=== PATIENT | female | born 1985 | race Caucasian/White ===

== ENCOUNTER 2019-12-15 03:25 | Inpatient (IN) | payer OTHER, SELFPAY ==
[2015-10-10 22:39] VITALS: BMI 25.9
[2019-12-15] MEDS: Lactated Ringers 1,000 ML 50 ML IV (03:35)
[2019-12-15 03:47] VITALS: BMI 25.9
[2019-12-15 03:57] LABS: Absolute Lymphocyte Count 2.43 X10^3/uL (0.83-4.51); Absolute Neutrophil Count 7.5 X10^3/uL (2.0-7.7); Basophil# 0.03 X10^3/uL; Basophil% 0.3 % (0-1); Eosinophil# 0.09 X10^3/uL; Eosinophils% 0.8 % (0-5); Hematocrit 36.5 % (37-47); Hemoglobin 12.1 g/dL (12.0-15.0); Lymphocyte # 2.43 X10^3/ul (4.0); Lymphocyte % 22.3 % (19-41); Mean Corp Hgb Conc 33.2 g/dL (32-36); Mean Corpuscular Hgb 30.2 pg (27.0-32.0); Mean Platelet Vol. 11.9 fl (6.2-12.0); Monocyte# 0.74 X10^3/uL; Monocyte% 6.8 % (0-10); NRBC Flagged by Analyzer 0 % (0-5); Neutrophil # 7.48 X10^3/uL (2.7-7.7); Neutrophil % 68.8 % (47-70); Platelet Count 154 K/mm3 (150-450); RBC Distribution Width CV 13.5 % (11.6-14.6); RBC Distribution Width SD 44.7 fl (35.1-43.9); Red Blood Count 4.01 M/mm3 (4.2-5.4); White Blood Count 10.9 K/mm3 (4.4-11.0)
[2019-12-15 04:11] LABS: Prothrombin Time (Protime)PT. 12.1 SECONDS (11.7-14.9)
[2019-12-15 04:12] LABS: Partial Thromboplast Time 26.9 Seconds (24.1-36.2)
[2019-12-15 04:29] LABS: AST(SGOT) 15 U/L (15-37); Alanine Aminotransfer ALT/SGPT 16 U/L (13-56); EST Glomerular Filtration Rate 88 mL/min (>60); Est Glom Filt Rate - Afr Amer 106 mL/min (>60); Estimated Creatinine Clearance 110.75 ml/min; Uric Acid 4.9 mg/dL (2.6-6.0)
--- NOTE | 2019-12-15 04:41 | PCM.HP.OB ---
History Date of Admission: 12/15/19 Final JUVENAL: 12/14/19 Gestational age: 40 Weeks and 1 Days History of this : This is a 34 year-old, G [], P [], at 40 weeks gestational age. Medical History: Medical History (Last Updated 12/15/19 @ 04:[address] Layne Schwarz MD) Anxiety F41.9 Migraine G43.909 Allergies No Known Allergies Allergy (Verified 12/15/19 03:48) Home Medications: Home Medications Vits [Prenatabs FA ] 1 tablet PO DAILY 09/23/15 Smoking Status: Former smoker Alcohol: None Number of Fetus(es): 1 NST - FHR Rate Baby A Baseline: 115 Variability:: Moderate Accelerations:: 15 x 15 Decelerations:: None NST Reactive:: Yes Uterine Activity:: Irregular History Past Pregnancies: Past Pregnancies Delivery Date Name GA/ Weeks Outcome Route Wt Sex Labor Length Anesthesia Delivery Location Provider FOB Labs: See [facility] H&P Physical Exam General: Alert, Oriented x3 Abdomen: Soft, Non Tender, Non-Distended, Gravid Neurological: Cranial nerves II-XII grossly intact [employer] REP: Normal external genitalia Estimated gestational size: Appropriate for gestational size Presentation: Cephalic Cervix Dilation (cm): 2 - AROM clear fluid Station: -2 Effacement (%): 75 Assessment/Plan This is a 34 year-old, , at 40&1 weeks gestational age. Admit to L&D GBS negative Pain - epidural as desired Elevated BP- check preE labs EFW - less than 4500g, patient with adequate pelvis
[2019-12-15 05:14] LABS: Protein, Urine (Random) 42.3 mg/dL (<11.9); Protein:Creat Ratio 328 mg/g CRE (0-200)
[2019-12-15] MEDS: Ondansetron 4 MG/2 ML Vial IV (07:28)
[2019-12-15] MEDS: fentaNYL 100 MCG/2 ML Ampul IV (07:38)
[2019-12-15] MEDS: Oxytocin 30 units/NS 500 ml 30 UNITS/500 ML IV.SOLN 334 UNITS IV (09:24)
--- NOTE | 2019-12-15 09:47 | PCM.OPRPT ---
Vaginal Delivery Maternal Presentation: Active Labor Amniotic Membrane Rupture Type: Artificial Amniotic Fluid Description: Clear Final JUVENAL: 12/14/19 Gestational age: 40 Weeks and 1 Days Date of Procedure: 12/15/19 Pre-Operative Diagnosis: Labior Post-Operative Diagnosis: Labor Surgery/ Procedure Performed: Spontaneous Vaginal Delivery Type of Anesthesia: Local with 1% lidocaine Description of Procedure: Patient prepped & draped in stirrups when ant lip/C/+1. Patient pushed with next ctx & was C/C/+1. She pushed to deliver the head. head gently guided to allow delivery of anterior and posterior shoulders. No excess traction placed on the head. Body delivered and infant placed on maternal abdomen. 3VC clamped & cut in delayed fashion. Placenta delivered with gentle traction and good uterine tone obtained. Presentation: FRANCIS Placental Delivery Description: Expressed Placenta Disposition: [facility] Cord Vessel Description: 3 Vessels Cord Entanglement: None Estimated Blood Loss: 250ml Infant A gender: Male - Jermaine (1 minute): 8 (5 minute): 9 Episiotomy Description: None Laceration: 1st degree - vaginal - repaired with 3-0 vicryl Medications given after delivery: IV Pitocin Complications: None
[2019-12-15] MEDS: Ketorolac 30 MG/ML Syringe IV (10:42)
[2019-12-15] MEDS: 0.9% Saline Lock 10 ML Syringe IV (11:54)
[2019-12-15] MEDS: Acetaminophen 500 MG Tablet 1000 MG PO (12:27)
[2019-12-15 15:40] VITALS: BP 142/92; PULSE 74; RESP 16; TEMP 37.2; O2SAT 98
[2019-12-15] MEDS: Ibuprofen 600 MG Tablet PO (21:52)
[2019-12-15 22:05] VITALS: BP 142/81; PULSE 76; RESP 16; TEMP 37
[2019-12-15 23:25] VITALS: BP 134/69; PULSE 88; RESP 14; TEMP 36.9
[2019-12-16] VITALS (14 sets, daily range): BP systolic 120–186; BP diastolic 56–104; PULSE 64–84; RESP 16–18; TEMP 36.8–37.4; O2SAT 98
[2019-12-16] MEDS: Acetaminophen 500 MG Tablet 1000 MG PO (03:37)
[2019-12-16] MEDS: Labetalol 100 MG Tablet PO ×2 (06:32→21:42)
--- NOTE | 2019-12-16 08:17 | PCM.PN.OB ---
Subjective: pt seen at bedside, doing well. pt reports good pain control. lochia mild. Denies GAN or visual changes. breast feeding well. - Physical Exam Vitals/I&O's: Vital Signs Temp Pulse Resp BP Pulse Ox 98.3 F 80 16 158/96 H 98 12/16/19 03:38 12/16/19 06:04 12/16/19 06:04 12/16/19 06:04 12/15/19 15:40 Oxygen Delivery Method Room Air Weight: 84.368 kg Body Mass Index (BMI) 25.9 Intake and Output for Last 24 Hours 12/14/19 12/15/19 12/16/19 23:59 23:59 23:59 Intake Total 933.33 / 933.33 Output Total 375 / 375 Balance 558.33 / 558.33 General: Alert, Oriented x3 Microbiology Past 72 Hours 12/15/19 04:15 Mucosa - Nasopharyngeal Coronavirus COVID-19 PCR - Final Current Medications Acetaminophen (Tylenol) 1,000 mg PO Q8H PRN PRN PRN Reason: Pain Score 1-3/10 Last Admin: 12/16/19 03:37 Dose: 1,000 mg Documented by: Bisacodyl (Dulcolax) 10 mg RECTAL UD PRN PRN Reason: If no BM Dibucaine (Dibucaine) 1 applic TOPICAL TID PRN PRN; Protocol PRN Reason: Discomfort Hydrocortisone (Hytone) 1 applic TOPICAL TID PRN PRN; Protocol PRN Reason: Discomfort Ibuprofen (Motrin) 600 mg PO Q6H PRN PRN PRN Reason: Pain Score 1-3/10 Last Admin: 12/15/19 21:52 Dose: 600 mg Documented by: Methylergonovine Maleate (Methergine) 0.2 mg IM X1 PRN PRN Reason: Excess bleeding/uterine atony Ondansetron HCl (Zofran) 4 mg IV Q4H PRN PRN PRN Reason: Nausea Oxycodone HCl (Oxyir) 5 - 10 mg PO Q4H PRN PRN PRN Reason: Pain Score 4-10/10 Senna/Docusate Sodium (Senokot-S, Rose Marie-Colace) 1 - 2 tablet PO DAILY PRN PRN PRN Reason: Constipation Simethicone (Mylicon) 80 mg PO PCHS PRN PRN Reason: Indigestion/Stomach pain Sodium Chloride () 5 - 15 ml IV UD PRN PRN Reason: SALINE FLUSH Last Admin: 12/15/19 11:54 Dose: 10 ml Documented by: Medical Necessity - Tobacco Use Smoking Status: Former smoker Assessment/Plan PPD#1, PRE E without severe features 1) responded well to Labetalol 100mg PO- will start her on 100mg BID 2) Routine Care 3) pain mgmt 4) consider dc home tomorrow if BPs are stable.
[2019-12-17 01:43] VITALS: BP 132/75; BP 140/76; PULSE 67; PULSE 71
[2019-12-17 01:45] VITALS: BP 132/75; BP 140/76; PULSE 67; RESP 18; TEMP 37.2
--- NOTE | 2019-12-17 08:06 | PCM.PN.OB ---
Subjective: pt seen at bedside, doing well. Patient denies any headaches, blurry vision. Breast-feeding going well. Lochia mild. Voiding without difficulty. - Physical Exam Vitals/I&O's: Vital Signs Temp Pulse Resp BP Pulse Ox 99.0 F 67 18 140/76 H 98 12/17/19 01:45 12/17/19 01:45 12/17/19 01:45 12/17/19 01:45 12/16/19 08:00 Oxygen Delivery Method Room Air Weight: 84.368 kg Body Mass Index (BMI) 25.9 Intake and Output for Last 24 Hours 12/15/19 12/16/19 12/17/19 23:59 23:59 23:59 Intake Total 933.33 / 933.33 Output Total 375 / 375 Balance 558.33 / 558.33 General: Alert, Oriented x3 Microbiology Past 72 Hours 12/15/19 04:15 Mucosa - Nasopharyngeal Coronavirus COVID-19 PCR - Final Current Medications Acetaminophen (Tylenol) 1,000 mg PO Q8H PRN PRN PRN Reason: Pain Score 1-310 Last Admin: 12/16/19 03:37 Dose: 1,000 mg Documented by: Bisacodyl (Dulcolax) 10 mg RECTAL UD PRN PRN Reason: If no BM Dibucaine (Dibucaine) 1 applic TOPICAL TID PRN PRN; Protocol PRN Reason: Discomfort Hydrocortisone (Hytone) 1 applic TOPICAL TID PRN PRN; Protocol PRN Reason: Discomfort Ibuprofen (Motrin) 600 mg PO Q6H PRN PRN PRN Reason: Pain Score 1-310 Last Admin: 12/15/19 21:52 Dose: 600 mg Documented by: Labetalol HCl (Trandate) 100 mg PO BID MARK Last Admin: 12/16/19 21:42 Dose: 100 mg Documented by: Methylergonovine Maleate (Methergine) 0.2 mg IM X1 PRN PRN Reason: Excess bleeding/uterine atony Ondansetron HCl (Zofran) 4 mg IV Q4H PRN PRN PRN Reason: Nausea Oxycodone HCl (Oxyir) 5 - 10 mg PO Q4H PRN PRN PRN Reason: Pain Score 4-10/10 Senna/Docusate Sodium (Senokot-S, Rose Marie-Colace) 1 - 2 tablet PO DAILY PRN PRN PRN Reason: Constipation Simethicone (Mylicon) 80 mg PO PCHS PRN PRN Reason: Indigestion/Stomach pain Sodium Chloride () 5 - 15 ml IV UD PRN PRN Reason: SALINE FLUSH Last Admin: 12/15/19 11:54 Dose: 10 ml Documented by: Medical Necessity - Tobacco Use Smoking Status: Former smoker Assessment/Plan PPD#2, PRE E without severe features 1) continue PO labetalol 2) follow up this week in office for BP check 3) discharge instructions reviewed
--- NOTE | 2019-12-17 08:09 | DCINST_ITS ---
Discharge Diet: No Restrictions Discharge Activity: Return to Normal Activity, May not drive while taking narcotic pain medications., May Shower May resume sexual activity in: 4-6 weeks Additional Activity Instructions:: Nothing in the vagina for 4-6 weeks. You may return to work/school in 6 weeks. Call your doctor if your incision/area has: Continuous Slow Oozing, Sudden Increased Bleeding, Increased Pain/ Swelling, Increased Redness, Foul Smelling Discharge Additional Instructions: If you experience any of the following, contact your healthcare provider. * Bleeding that soaks a pad every hour for 2 hours * Fever 100.4 or higher * Unrelieved incision or abdominal pain * Swelling, redness, discharge or bleeding from your incision or episiotomy site * Your incision begins to separate * Problems urinating (including inability to urinate or burning while urinating). * Visual changes * Severe headache * Flu-like symptoms * Pain or redness in one of both of your breasts * Pain, warmth, tenderness or swelling in your legs, especially the calf area * Frequent nausea and vomiting * Symptoms of depression or anxiety If you experience any of the following, call 911 or go to the nearest Emergency Room. * Chest pain * Problems breathing * Seizure activity * Partial or complete paralysis of a body part, slurred speech, weakness or drooping of the face, or a sudden inability to walk or hold your balance Allergies/Adverse Reactions: Allergies No Known Allergies Allergy (Verified 12/15/19 03:48) Medications to take at Discharge Vits [Prenatabs FA ] 1 tablet PO DAILY 09/23/15 Ibuprofen [Motrin] 600 mg PO Q6H PRN PRN #30 tab 12/17/19 Labetalol [Trandate (Beta Aminta)] 100 mg PO BID #60 tab 12/17/19 The following prescriptions were given: Ibuprofen [Motrin] 600 mg PO Q6H PRN PRN #30 tab PRN Reason: Pain Score 1-3/10 Transmission Status: Pending to [facility] [address] Labetalol [Trandate (Beta Aminta)] 100 mg PO BID #60 tab Transmission Status: Pending to [facility] [address] When: Call to make an appointment with your doctor in 6 weeks. you will need to be seen this week for BP check - monday12/20/19 at 9am Primary Care Physician: Care Physician,No Primary [Primary Care Provider] - Test Results: Test results from this visit will be discussed in further detail at your follow- up appointment, if applicable.
[2019-12-17 09:06] VITALS: BP 138/87; PULSE 69; RESP 16; TEMP 37.1
[2019-12-17] MEDS: Labetalol 100 MG Tablet PO (10:06)
== END 2019-12-17 10:50 | disposition home or self-care (01) | DRG 807 ==
LOC: WPOUT 03:30 → WP 03:30
PROVIDERS: Admitting Provider Advanced Practice Midwife; Visit Provider Advanced Practice Midwife
DX: O15.03 Eclampsia complicating pregnancy, third trimester (principal); Z37.0 Single live birth; O70.0 First degree perineal laceration during delivery; Z3A.40 40 weeks gestation of pregnancy; Z79.899 Other long term (current) drug therapy
CPT/HCPCS: 59050; 82565; 82570; 84156; 84450; 84460; 84550; 85025; 85610; 85730; 86850; 86900; 86901; 87635; 99218; J7120; A4216; G0378; J2405; U0004

== ENCOUNTER 2022-05-20 09:30 | Day surgery (SDC) | payer OTHER, SELFPAY ==
--- NOTE | 2022-05-17 08:23 | PCM.HP.BLA ---
History and Physical Date of Admission: 05/20/22 Pre-Op History and Physical ? HPI: The patient is a 36 year old female presenting for pre-operative visit. She is scheduled for laparoscopic bilateral salpingectomy, for desires sterilization on 05/20/22. Procedure discussed along with risks, benefits and complications. Other alternatives discussed for management. Consent form signed? Yes. ? ? PAST MEDICAL HISTORY PAST MEDICAL HISTORY Diagnosis Date ? anxiety ? ? Hx of anxiety disorder ? ? Migraine ? ? Resolved after first child ? Pseudoangiomatous stromal hyperplasia of breast ? ? Right ? 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 Septicemia (HCC) 2003 ? from UTI ? Vitamin D deficiency ? ? ? PAST SURGICAL HISTORY PAST SURGICAL HISTORY Procedure Laterality Date ? BX OF BREAST; INCISIONAL Right 2018 ? benign ? PAST SURGICAL HISTORY OF ? ? ? wisdom teeth ? ? ? CURRENT MEDICATIONS Current Outpatient Medications Medication Sig Dispense Refill ? Cholecalciferol, Vitamin D3, 25 mcg (1,000 unit) cap Take 2 capsules by mouth once daily. ? ? ? cyanocobalamin (VITAMIN B-12) 1,000 mcg tab Take 1 tablet by mouth once daily. ? ? ? No current facility-administered medications for this visit. ? ? ALLERGIES: Patient has no known allergies. ? PERSONAL HISTORY: SOCIAL HISTORY Social History ? Tobacco Use ? Smoking status: Former ? ? Packs/day: 0.25 ? ? Years: 8.00 ? ? Pack years: 2.00 ? ? Types: Cigarettes ? ? Quit date: 12/26/2013 ? ? Years since quittin.3 ? Smokeless tobacco: Never Vaping Use ? Vaping Use: Never used Substance Use Topics ? Alcohol use: Yes ? ? Comment: 1-2 per month ? Drug use: Never ? FAMILY HISTORY: FAMILY HISTORY FAMILY HISTORY Problem Relation Age of Onset ? No Known Problems Mother ? ? No Known Problems Father ? ? Allergies Sister ? ? No Known Problems Maternal Grandmother ? ? Cancer Maternal Grandfather ? ? lung ? Heart Son ? ? PVC ? No Known Problems Son ? ? ? REVIEW OF SYMPTOMS: negative except as noted above PHYSICAL EXAMINATION: ? VITALS: Blood pressure 110/60, weight 145 lb (65.8 kg), last menstrual period 05/03/2022. ? GENERAL: The patient is well nourished, well hydrated in no acute distress. , The patient is oriented to time, place, and person. Neck: full range of motion ? IMPRESSION: 36yo desires sterilization ? PLAN: Laparoscopic bilateral salpingectomy ? Pt has been counseled on risks/benefits and alternatives of surgery including but not limited to anesthesia, bleeding, infection, injury to pelvic structures including bowel, bladder, ureters and vessels. Pt wishes to proceed with surgery at this time. Pt declines reversible contraception - understands this is permanent ? Pre and post op instructions reviewed. ? ? I have reviewed and updated past medical and surgical history, medications and allergies Dyana Bedolla MD
[2022-05-20] VITALS (10 sets, daily range): BP systolic 129–167; BP diastolic 83–112; PULSE 59–103; RESP 16; TEMP 36.7–36.8; O2SAT 93–100; BMI 20.6
[2022-05-20] MEDS: Lactated Ringers 1,000 ML 15 ML IV ×2 (10:16→12:31)
[2022-05-20 10:20] LABS: Hematocrit 41.1 % (37-47); Hemoglobin 13.7 g/dL (12.0-15.0); Mean Corp Hgb Conc 33.3 g/dL (32-36); Mean Corpuscular Hgb 29.6 pg (27.0-32.0); Mean Corpuscular Volume 88.8 fL (81-99); Mean Platelet Vol. 10.7 fl (6.2-12.0); Platelet Count 204 K/mm3 (150-450); RBC Distribution Width SD 42.4 fl (35.1-43.9); Red Blood Count 4.63 M/mm3 (4.2-5.4); White Blood Count 7.5 K/mm3 (4.4-11.0)
[2022-05-20 10:21] LABS: Internal QC Validated? YES +Cl - CLEAR BKGD; Pregnancy, Urine Negative Negative
--- NOTE | 2022-05-20 10:21 | DCINST_ITS ---
Discharge Instructions Procedure Other Diet Discharge Diet: No restrictions Activity May resume sexual activity in: 2 weeks Lifting Restrictions: 20-25 lbs Dressing / Incision Call your doctor if your incision/area has: Continuous Slow Oozing, Sudden Increased Bleeding, Increased Pain/ Swelling, Increased Redness, Foul Smelling Discharge and Swelling at the incision site Call your doctor if you observe: Fever of 101 or Higher, Inability to urinate, Inability to have a bowel movement, Using more than 1 pad per hour and Uncontrolled pain Additional Dressing/Incision Instructions:: You have skin glue over your incision sites, do not pick off. You may shower and let the soap and water run over the incision sites and dab dry. Follow Up Care Please Follow Up With: Dyana Peng MD When: 1-2 weeks post OP if you need an appointment please call [phone] Test Results: Test results from this visit will be discussed in further detail at your follow- up appointment, if applicable. Discharge Plan Admission Attending Provider: Dyana Peng Primary Care Provider: Wilson Hankins Discharge Orders/Prescriptions Prescriptions: No Action NK Referrals / Follow Up: Wilson Hankins MD [Primary Care Provider] - Disposition Discharge Orders: Discharge Patient (Routine); Ordered 05/20/22 Ordered By: Dr. Dyana Peng
[2022-05-20] MEDS: Bupivacaine 0.25% 30 ML Vial (10:46)
--- NOTE | 2022-05-20 10:55 | FALS_PTH ---
PATIENT: HUY STANLEY LOC: [facility] U#:[id number] AGE/SX: 36/F ROOM: RE05/20/[address]: Dr. Dyana Peng, MDDOB: 1985 BED: DIS: 05/20/2022 SPEC #: [id number] RECD: 05/20/22 11:38 STATUS: COLE PATRICIA #: [id number] АНДРЕЙ: 05/20/22 10:[address]: Dyana Peng DEPT: SURGICAL PATHOLOGY RECD BY: Keysha Noland ENTERED: 05/20/22 12:47 SP TYPE: FALL TUBES OTHR DR: Dr. Wilson Hankins MD Tissues: Fallopian tube Procedures: Surgery Specimen Level II Surgery Specimen Level IV HEADER OPERATION: Laparoscopic salpingectomy PRE-OP DIAGNOSIS: Sterilization TISSUE SUBMITTED: Bilateral fallopian tubes MICROSCOPIC DIAGNOSIS Right and left fallopian tubes, bilateral salpingectomies: Complete cross-sections of fallopian tubes. Benign paratubal cyst. AM:lula 05/23/2022 MICROSCOPIC DESCRIPTION Slides are reviewed. GROSS DESCRIPTION Received in fixative is one container labeled with the patient's name and designated bilateral fallopian tubes. The specimen consists of two fallopian tubes with an average length of 5.5 cm and has an average diameter of 0.8 cm. Both fallopian tubes have normal fimbriated ends. One fimbrial end contains a smooth, glistening cyst measuring 0.7 cm and contains clear fluid. Steam Shovel Runner sections are submitted in two cassettes as follows: 1 - one fallopian tube, 2 - the other fallopian tube. / AM:lula 05/20/2022 TC:5 CPT: 59622 x2
--- NOTE | 2022-05-20 11:11 | PCM.OPRPT ---
Report of Operation Date of Procedure: 05/20/22 Pre-Operative Diagnosis: desires sterilization Post-Operative Diagnosis: same Surgery/Procedure Performed:: laparoscopic bilateral salpingectomy Description of Surgical Findings:: normal tubes and ovaries bilaterally. No pelvic adhesions. Surgeon: Dyana Peng low voltage electrician: None (MS3 kwaku encarnacion) Type of Anesthesia: General and Local Special Medications: 0.25% marcaine Specimen's removed: bilateral fallopian tubes Drains: none Estimated Blood Loss (mL): <5 Fluids Replaced: 700 Description of Procedure: After informed consent was obtained patient was taken to the operating room she was placed in supine position she was given anesthesia. She was then placed in the [facility] stirrups and she was prepped and draped in normal sterile fashion. Bladder was drained prior to the start of procedure. At this time attention was turned to the vaginal portion where weighted speculum placed at posterior fornix vagina single-tooth tenaculum was used to gently grasp the internal the cervix. uterus was gently sounded to approximately 7cm. Uterine manipulator was placed without difficulty. Legs then placed in parallel with the abdomen the tenaculum and the weighted speculum were removed. 2 towel clamps were placed at level of umbilicus. Marcaine was injected infraumbilical and a small incision was made. The 5 mm trocar was placed under direct visualization. CO2 gas was used to insufflate the intra-abdominal cavity. Upon inspection no gross abnormalities appreciated- the uterus tubes and ovaries appeared to be normal. At this time then the LLQ and RLQ ports were placed First Marcaine was injected and small incision was made a knife and the 5 mm trocars were placed. At this time then tubes were traced back to the fimbriated ends. Enseal was used to coagulate and ligate along mesosalpinx bilaterally until tubes removed completely. Good hemostasis was appreciated. At this time procedure was deemed complete successful. The gas was desufflated on from the intra-abdominal cavity. The trochars were removed. Skin was closed using 4-0 Monocryl in a subcutaneous fashion. Dermabond glue was placed. Instrument lap and needle counts were correct ?2. The uterine manipulator was removed. Vaginal sweep was performed it was negative. There were no complications anticipated normal postoperative course for this patient. Grafts/Implants Used: none Procedure Start Time: 10:44 Procedure Stop Time: 11:09 Complications none Admit VTE Documentation VTE Present on Admission: Yes VTE Mechan Device Prophylaxis: SCD's VTE Pharm Prophylaxis ordered?: No Reason prophylaxis not ordered:: Procedure Not Indicated
== END 2022-05-20 14:00 | disposition home or self-care (01) ==
LOC: SDC 09:33 → AC 09:34
PROVIDERS: PCP Family Medicine; Referring Provider Obstetrics & Gynecology; Visit Provider Obstetrics & Gynecology
PROC: (CPT 58661; principal; 2022-05-20 10:40)
DX: Z30.2 Encounter for sterilization (principal); N83.8 Other noninflammatory disorders of ovary, fallopian tube and broad ligament; F17.210 Nicotine dependence, cigarettes, uncomplicated
CPT/HCPCS: 58661; 00840; 81025; 85027; 88302; 88305; J7120; C1760; J2405

== ENCOUNTER 2024-10-30 16:50 | Emergency (ER) | payer OTHER, SELFPAY ==
[2024-10-30 16:52] VITALS: BP 182/120; PULSE 75; RESP 18; TEMP 36.4; O2SAT 99; BMI 23.4
--- NOTE | 2024-10-30 17:14 | EDS_ITS ---
HPI History of Present Illness Chief Complaint: Headache Informant: patient Onset/Context/Timing Onset: Days (5) Context: Gradual Timing: Continuous Quality -Headache: Positive for Sharp and Other (Stabbing) Location: Left frontal area Worsened by: Palpation Relieved by: Nothing Associated Symptoms/Injury Associated Symptoms: Positive for Fever (101); Negative for Nausea, Vomiting, Sore Throat, Sinus Pressure, Numbness, Tingling, Preceding Aura, Visual Changes, Blurred Vision, Photophobia or Visual Loss Injury - GAN: Negative for Direct Trauma Narrative Narrative: Patient presents with neck pain that has been getting worse over the past 5 days. Patient states that today she started having a headache. Patient states she also noted a fever today. Patient states her headache is over the frontal area and is worse on the left. Patient describes it as sharp and stabbing. Patient states that has been constant. Patient states it is worse when she pushes on her left frontal area. Patient admits to a fever of 101 at home. Patient denies any sinus pressure, sore throat, rhinorrhea. Patient denies any nausea or vomiting. Patient denies any visual changes, scotoma, or photophobia. Patient denies any trauma or injury. [facility] Medical History (Updated 10/30/24 @ 19:[address] Jeison Dale, ) Wears contact lenses Marijuana use Former smoker Hypertension Migraine Anxiety Home Medications ?Medication ?Instructions ?Recorded ?Last Taken ?Type NK 05/13/22 Unknown History Allergy/AdvReac Type Severity Reaction Status Date / Time No Known Allergies Allergy Verified 10/30/24 16:55 Family History no significant family his Surgical History (Updated 10/30/24 @ 17:[address] Jeison Dale DO) Hx of tubal ligation S/P breast lumpectomy Hx of wisdom tooth extraction Social History Smoking Status: Former smoker ROS ROS ED Constitutional Constitutional ED: Reports fever(s); Denies chills Eyes Eyes: Denies blurry vision or change in vision ENT ENT ED: Denies rhinorrhea or sore throat Cardiovascular Cardiovascular: Reports chest pain; Denies palpitations Respiratory/Chest Respiratory/Chest: Denies cough or dyspnea Gastrointestinal Gastrointestinal: Denies nausea or vomiting Genitourinary Genitourinary ED: Denies dysuria or hematuria Musculoskeletal Musculoskeletal: Reports neck pain; Denies back pain Integumentary Denies abscess or rash Neurologic Neurologic: Reports headache(s); Denies weakness Allergic/Immunologic Allergic/Immunologic ED: Denies mouth swelling or urticaria EXAM Physical Exam Const Vital Signs: 10/30/24 16:52 10/30/24 17:02 10/30/24 18:48 Temperature 97.6 F L Temperature Source Oral Pulse Rate 75 71 Respiratory Rate 18 Respiratory Effort Normal Non-Labored Respiratory Pattern Normal Blood Pressure 182/120 H 173/111 H Blood Pressure Mean 140 131 Pulse Ox 99 100 Oxygen Delivery Method Room Air Positive well nourished and well developed General Appearance ED: well developed and NAD HEENT Reports normocephalic and moist mucous membranes HEENT Narrative: There is tenderness over the left frontal sinus. There is no tenderness over t he maxillary sinuses. atraumatic and tenderness; Negative for vesicular rash Neck supple, no meningeal signs and no JVD Neck Narrative: There is mild tenderness over the right cervical paraspinal muscles. There is no midline tenderness. There is good range of motion of the cervical spine. General: tenderness Resp normal respiratory effort and clear to auscultation bilaterally Cardio regular rate and regular rhythm GI non-tender and non-distended Palpation: soft Extremity normal to inspection and full ROM Neuro oriented x3, CN's II-XII intact bilaterally and no sensory deficits noted Davis Coma Scale: document GCS findings Spontaneous Obeys Commands Oriented 15 Sensorium / Orientation: awake and alert Speech: speech normal Motor Exam: strength 5/5 throughout MDM MDM MDM Narrative Medical decision making narrative: Differential diagnosis includes sinusitis, intracranial bleeding, tension headache, migraine headache, viral illness, pneumonia, and bronchitis. CT scan of the brain will be obtained to assess for sinusitis and intracranial bleeding. CBC will be obtained to assess for leukocytosis and anemia. Basic metabolic profile will be obtained to assess for electrolyte abnormality and renal function. Chest x-ray will be obtained to assess for pneumonia and bronchitis. COVID-19, influenza, and RSV PCR will be obtained to assess for viral illness. Lab Data Attestation: I reviewed the patient's lab results. Lab results narrative: COVID-19 PCR was reviewed and was negative. Influenza PCR was reviewed and was negative for influenza A and influenza B. RSV PCR was reviewed and was negative. Radiography Chest X-Ray - ED: 2 View, Read by ED Physician, Read by Radiologist and No Acute Disease Diagnostic Testing: Clinical Impression(s) from Imaging Studies Chest X-Ray 10/30/24 17:20 IMPRESSION: NEGATIVE CHEST Reading Location: [facility] Brain CT 10/30/24 17:50 IMPRESSION: NORMAL NONCONTRAST HEAD CT. Reading Location: [facility] CT scan of the brain was obtained. There is no acute intracranial abnormality. This was interpreted by the radiologist and was also independently reviewed by myself. PA and lateral chest x-ray was obtained. There are 2 views. On my independent interpretation, lung cortes are clear. There is normal cardiac silhouette. Bony thorax is normal. There is no acute process noted. Radiologist also interpreted the x-ray and agrees. Treatment and Re-Evaluation Narrative: Patient was given IV fluids, Reglan, and Benadryl. Patient had some improvement with her headache after this. Patient was advised of her findings. Patient was advised that this could be a viral upper respiratory infection. There was no evidence of frontal sinusitis on CT scan. Patient was instructed to take Tylenol or ibuprofen as needed for any pain or fevers. Patient was instructed to drink plenty of fluids. Patient was instructed to follow-up with her primary care physician in 5 to 7 days. Patient was instructed to return if worse in any way. Patient understood and was agreeable with the plan. All questions were answered. Discharge Plan Triage Chief Complaint: Headache Other Complaint: Fever ED Provider: Jeison Dale Dx/Rx/DC Orders Clinical Impression: Headache, Cervical myofascial strain, Upper respiratory infection Instructions: ED Headache Unspecified, ED Neck Sprain or Strain, ED URI, Viral, No Abx (Adult) Prescriptions: No Action NK Primary Care Provider: Wilson Hankins Referrals: Wilson Hankins MD [Primary Care Provider] - 5-7 Days Print Language: [place] Disposition Disposition: Home, Self Care
--- NOTE | 2024-10-30 17:20 | RAD_ITS ---
PROCEDURE: CHEST PA AND LATERAL 10/30/2024 REASON FOR EXAM: CHEST PAIN TECHNIQUE: Frontal and lateral views of the chest. FINDINGS: Hardware: None Heart: The heart size is normal. Mediastinum: The mediastinal contour is unremarkable. Lungs: The lungs are clear. Bones: The bones are unremarkable. RAD/Chest PA and Lateral IMPRESSION: NEGATIVE CHEST Reading Location: [id number]
[2024-10-30] MEDS: Metoclopramide 10 MG/2 ML Vial IV (17:34)
[2024-10-30] MEDS: DiphenhydrAMINE 50 MG/ML Syringe 25 MG IV (17:35)
[2024-10-30] MEDS: 0.9% Normal Saline (1000mL) 1,000 ML 999 ML IV (17:36)
--- NOTE | 2024-10-30 17:50 | CT_ITS ---
PROCEDURE: BRAIN/HEAD WITHOUT CONTRAST 10/30/2024 REASON FOR EXAM: PAIN TECHNIQUE: Head CT without intravenous contrast. Coronal and Sagittal reconstruction series were provided. One or more dose reduction techniques were used (e.g., Automated exposure control, adjustment of the mA and/or kV according to patient size, use of iterative reconstruction technique. FINDINGS: Brain: Normal CSF Spaces: Normal Sinuses/Mastoids: Clear at visualized levels Bones: Unremarkable. CT/Brain/Head without Contrast IMPRESSION: NORMAL NONCONTRAST HEAD CT. Reading Location: [id number]
[2024-10-30 18:48] VITALS: BP 173/111; PULSE 71; O2SAT 100
== END 2024-10-30 19:15 | disposition home or self-care (01) ==
PROVIDERS: Emergency Provider Emergency Medicine; PCP Family Medicine; Visit Provider Emergency Medicine
DX: J06.9 Acute upper respiratory infection, unspecified (principal); S16.1XXA Strain of muscle, fascia and tendon at neck level, initial encounter; X58.XXXA Exposure to other specified factors, initial encounter; I10 Essential (primary) hypertension; Z87.891 Personal history of nicotine dependence; Z11.52 Encounter for screening for COVID-19
CPT/HCPCS: 70450; 71046; 87631; 96361; 96374; 96375; 99284; A4216